=== PATIENT | female | born 1955 | race Hispanic/Latino ===

== ENCOUNTER 2020-07-06 17:05 | Emergency (ER) | payer OTHER ==
[2020-07-06] MEDS ORDERED: DIPHENHYDRAMINE HCL 25 MG CAPSULE ONE (17:40)
== END 2020-07-06 18:15 | disposition home or self-care (01) ==
LOC: EDH 17:05
DX: S40.861A Insect bite (nonvenomous) of right upper arm, initial encounter (principal); I10 Essential (primary) hypertension; W57.XXXA Bitten or stung by nonvenomous insect and other nonvenomous arthropods, initial encounter; Y93.89 Activity, other specified; Y92.89 Other specified places as the place of occurrence of the external cause; Y99.8 Other external cause status
CPT/HCPCS: 99282; Q0163

== ENCOUNTER 2020-07-07 21:55 | Emergency (ER) | payer OTHER ==
[2020-07-07] MEDS ORDERED: PREDNISONE 20 MG TABLET ONE (22:36)
== END 2020-07-07 22:44 | disposition home or self-care (01) ==
LOC: EDH 21:55
DX: L50.0 Allergic urticaria (principal); I10 Essential (primary) hypertension

== ENCOUNTER 2022-04-30 22:19 | Emergency (ER) | payer OTHER ==
[2022-04-30 22:52] LABS: BASOPHILS % (AUTO) 0.3 % (0.0-5.0); EOSINOPHILS % (AUTO) 1.4 % (0.0-8.0); LYMPHOCYTES % (AUTO) 35.9 % (21.0-51.0); MEAN CORPUSCULAR HGB CONC 32.9 g/dL (32.0-36.0); MEAN CORPUSCULAR VOLUME 85.1 fL (79-99); MONOCYTES % (AUTO) 5.3 % (3.0-13.0); NEUTROPHILS % (AUTO) 56.5 % (40.0-77.0); PLATELET COUNT (AUTO) 296 K/uL (130-400); RED BLOOD CELL COUNT(AUTO) 4.82 MIL/uL (4.00-5.50); RED CELL DISTRIBUTION WIDTH 13.3 % (11.0-15.5); WHITE BLOOD COUNT (AUTO) 7.9 K/uL (4.8-10.8)
[2022-04-30 23:11] LABS: ALBUMIN 3.5 g/dL (3.5-5.0); BILIRUBIN,TOTAL 0.3 mg/dL (0.2-1.0); CREATININE 0.8 mg/dL (0.5-1.5); POTASSIUM 3.5 mmol/L (3.5-5.1)
[2022-05-01] MEDS ORDERED: DiphenhydrAMINE HCL 50 MG/ML VIAL ONE (00:05)
[2022-05-01] MEDS ORDERED: DIPH25 PO (01:17)
[2022-05-01 01:29] VITALS: BP 154/72
== END 2022-05-01 01:33 | disposition home or self-care (01) ==
LOC: EDH 22:19
DX: T78.1XXA Other adverse food reactions, not elsewhere classified, initial encounter (principal); L50.9 Urticaria, unspecified; E11.9 Type 2 diabetes mellitus without complications; I10 Essential (primary) hypertension; X58.XXXA Exposure to other specified factors, initial encounter
CPT/HCPCS: 36415; 80053; 84484; 85025; 93005; 99284; J1200

== ENCOUNTER → 2025-03-22 | Emergency (ER) | payer OTHER, MEDICARE ==
[~2025-03-22] VITALS: Ht 154.9 cm; Wt 86.2 kg
[~2025-03-22] MED LIST: CETI10CA5 PO; DIPH-1242 PO; PRED20TA3 PO
[2025-03-22 22:09] LABS: HEMATOCRIT 38.8 % (36-48); MEAN CORPUSCULAR HEMOGLOBIN 28.2 pg (27.0-33.0); MEAN CORPUSCULAR HGB CONC 32.7 g/dL (32.0-36.0); RED BLOOD CELL COUNT(AUTO) 4.51 MIL/uL (4.00-5.50); RED CELL DISTRIBUTION WIDTH 13.5 % (11.0-15.5); WHITE BLOOD COUNT (AUTO) 9.6 K/uL (4.8-10.8)
[2025-03-22] MEDS: FAMOTIDINE 20MG VIAL IV ONE (22:09)
[2025-03-22] MEDS: DiphenhydrAMINE HCL 50 MG/ML VIAL IV ONE (22:09)
[2025-03-22] MEDS: LACTATED RINGERS 1000ML 1,000 ML IV ONE (22:09)
[2025-03-22] MEDS: Solu-medROL 125MG VIAL IVP ONE (22:09)
[2025-03-22] MEDS: ondanSETRON 4MG INJ IVP ONE (22:09)
--- NOTE | 2025-03-22 22:14 | ERN ---
General Chief Complaint: Allergic Reaction Stated Complaint: ALLERGIC REACTION Time Seen by MD: 21:44 History of Present Illness Initial Comments 69-year-old female who presents for allergic reaction. Patient reports just prior to arrival her face got very red, her and, feet and chest are very itchy and she feels tightness to the chest. Appears to be allergic reaction. She has never had this before. She is on sure what triggered it, she ate watermelon prior to arrival. She does report she recently started with the amoxicillin for a throat infection. No dyspnea or respiratory distress. No airway compromise. Allergies: Coded Allergies: No Known Allergies (Unverified Allergy, Unknown, 03/22/25) Home Meds Active Scripts Diphenhydramine HCl (Benadryl) 25 Mg Cap, 25 MG PO TID, #20 CAP Prov:RORY ORTIZ MD 05/01/22 Past Medical History Past Medical History: Diabetes-Type II, High Cholesterol, Hypertension Past Surgical History: Other Surgical History Other: HERNIA Social History Social History: Negative, Lives with family Female( History) History: Not Applicable ROS Dictation CONSTITUTIONAL: Anxious HEAD/FACE: No signs of trauma. EENT: No eye pain, no blurred vision, no tearing, no double vision, no ear pain, no ear discharge, no nose pain, no nasal congestion, no throat pain, no throat swelling, no mouth pain. RESPIRATORY: No cough, no orthopnea, no SOB, no stridor, no wheezing. CARDIOVASCULAR: Chest tightness GASTROINTESTINAL/ABDOMINAL: No abdominal pain, no constipation, no diarrhea, no nausea, no vomiting. GENITOURINARY: No abnormal discharge, no dysuria, no frequent urination, no hematuria. No complaints of pain in the genitals. MUSCULOSKELETAL: No back pain, no gout, no joint pain, no joint swelling, no muscle pain, no muscle stiffness, no neck pain. INTEGUMENTARY: Rash and itchiness NEUROLOGICAL/PSYCH: No anxiety, not depressed, no emotional problem, no headache, no numbness, no pre-existing deficit, no history of seizures, no tremors, no weakness. HEMATOLOGIC/LYMPHATIC: Not anemic, no history of blood clots, no apparent bleeding, no bruising, glands not swollen. All Systems Negative, Except as Noted. Physical Exam Physical Exam Dictation VITAL SIGNS: Reviewed. GENERAL APPEARANCE: Alert, oriented x3, no acute distress, obese. HEAD AND FACE: Non-traumatic. EYES: PERRL, pink conjunctivas, eyelid no trauma, anterior chamber clear. EARS: Pinnas intact and no signs of trauma or erythema. Ear canals clear and no discharge. TMs no erythema. NOSE: No discharge, no bleeding. OROPHARYNX: Mouth normal, teeth no caries, tongue pink. Pharynx clear, no erythema. Tonsils no exudates, no abscesses noted. Mucous membrane moist. NECK: Supple, non-tender, no thyromegaly, no masses, no JVD, no bruits. BREAST: Deferred. CHEST: No tenderness, no crepitus, no paradoxical movement, no retractions. LUNGS: Clear, well-ventilated, symmetric, no rales, no wheezing, no rhonchi, no stridor, good breath sounds bilaterally. HEART: Regular rate, regular rhythm, no murmur, no gallops. VASCULAR: No peripheral edema. ABDOMEN: Soft, positive bowel sounds, nondistended, no guarding, nontender, no rebound, no masses no hepatomegaly, no splenomegaly, no Briggs's sign, no hernias. RECTAL: Deferred. GENITAL: Deferred. NEUROLOGICAL: Normal speech, gross motor function intact, gross sensory function intact. MUSCULOSKELETAL: Neck nontender, full range of motion, back nontender, full range of motion. EXTREMITIES: Nontender, full range of motion. SKIN: Red face, some hives to the chest, redness to the hands LYMPHATICS: Deferred. Results Laboratory and Microbiology Lab and Micro Result Laboratory Tests Test 03/22/25 22:00 White Blood Count 9.6 K/uL (4.8-10.8) Red Blood Count 4.51 MIL/uL (4.00-5.50) Hemoglobin 12.7 g/dL (12.0-16.0) Hematocrit 38.8 % (36-48) Mean Corpuscular Volume 86.0 fL (79-99) Mean Corpuscular Hemoglobin 28.2 pg (27.0-33.0) Mean Corpuscular Hemoglobin Concent 32.7 g/dL (32.0-36.0) Red Cell Distribution Width 13.5 % (11.0-15.5) Platelet Count 330 K/uL (130-400) Mean Platelet Volume 9.4 fL (7.5-10.5) Nucleated Red Blood Cells 0.0 % (0.0-0.19) Sodium Level 137 mmol/L (136-145) Potassium Level 3.6 mmol/L (3.5-5.1) Chloride Level 100 mmol/L (101-111) L Carbon Dioxide Level 28 mmol/L (21-32) Blood Urea Nitrogen 15 mg/dL (7-18) Creatinine 0.9 mg/dL (0.5-1.0) Glomerular Filtration Rate Calc 70 mL/min (>90) Random Glucose 277 mg/dL (70-105) H Total Calcium 9.2 mg/dL (8.5-10.1) MDM CC: Allergic reaction Historian: Patient Comorbidities: Advanced age, diabetes, dyslipidemia, obesity Limitations by social determinants of health: None Differential diagnosis: Allergic reaction, anaphylaxis, airway compromise, other Vital signs show hypertension otherwise stable On clinical exam she does have hives. She does report some tightness in the chest but I do not see any obvious signs of major distress. She is protecting her airway. Her lung sounds are clear. EKG shows sinus rhythm rate of 85 with a normal axis good R-wave progression intervals are stable No labs or imaging indicated Patient received IV fluids, IV Solu-Medrol, IV Benadryl famotidine. She was monitored for 2 hours here in the ER. Her symptoms dramatically improved. On re-evaluation she has a clear lung sounds and no concerning findings. Plan will be to discharge with prednisone and cetirizine. She was also taking amoxicillin for an ENT type infection, we will switch to clindamycin. We will recommend PCP follow up as needed. Patient and family agree with the plan. ED Course Orders Procedure Category Date Status Time Ondansetron 4mg Inj PHA 03/22/25 Complete (Zofran 4mg Inj) 22:00 Methylprednisolone PHA 03/22/25 Complete Succ 125mg (Solu-Medr 22:00 Diphenhydramine Hcl PHA 03/22/25 Complete (Benadryl Inj) 22:00 Famotidine 20mg Vial PHA 03/22/25 Complete (Pepcid 20mg Vial) 22:00 Lactated Ringers PHA 03/22/25 Complete 1000ml (Lactated 22:00 12 Lead Ekg Tracing- EKG 03/22/25 Logged Technical 21:54 Cbc Without LAB 03/22/25 Complete Differential 22:02 Basic Metabolic Panel LAB 03/22/25 Complete 22:02 Current Medications Medications (Trade) Dose Ordered Sig/Max Route PRN Reason Start Time Stop Time Status Last Admin Dose Admin Diphenhydramine HCl (BENAdryl INJ) 25 mg ONCE ONCE IV 03/22/25 22:00 03/22/25 22:01 DC 03/22/25 22:09 Famotidine (Pepcid 20mg Vial) 20 mg ONCE ONCE IV 03/22/25 22:00 03/22/25 22:01 DC 03/22/25 22:09 Lactated Ringer's 1,000 ml @ 0 mls/hr ONCE ONCE IV 03/22/25 22:00 03/22/25 22:01 DC 03/22/25 22:09 Methylprednisolone Sodium Succinate (Solu-medROL 125MG) 125 mg ONCE ONCE IVP 03/22/25 22:00 03/22/25 22:01 DC 03/22/25 22:09 Ondansetron HCl (zoFRAN 4MG INJ) 4 mg ONCE ONCE IVP 03/22/25 22:00 03/22/25 22:01 DC 03/22/25 22:09 Vital Signs Date Time Temp Pulse Resp B/P (MAP) Pulse Ox O2 Delivery O2 Flow Rate FiO2 03/22/25 22:15 98.4 89 22 175/56 98 Room Air* 0 21 03/22/25 21:41 97.3 94 20 187/96 99 Room Air DX & DISP Disposition: Discharge Departure Impression: Primary Impression: Allergic reaction Condition: Stable Scripts Cetirizine HCl (Zyrtec) 10 Mg Capsule 1 CAP PO DAILY for allergy symptoms for 5 Days, #5 CAP 0 Refills Prov: PADILLA EASTMAN DO 03/22/25 Prednisone (Prednisone) 20 Mg Tablet 1 TAB PO BID for 3 Days, #6 TAB 0 Refills Prov: PADILLA EASTMAN DO 03/22/25 Additional Instructions: Your symptoms are most consistent with an allergic reaction. You received IV steroids, famotidine, diphenhydramine here in the ER. Your EKG is normal. I have prescribed prednisone this is an anti-inflammatory steroid. Take this twice per day for the next three days. I have prescribed cetirizine. This is an antihistamine. Take this once per day for the next three days. I recommend that you stop taking the amoxicillin. I have prescribed clindamycin instead. Take as prescribed. Please immediately return to the emergency department if you have any concerning symptoms. Referrals: ZEUS DEL CASTILLO MD (PCP) PADILLA EASTMAN DO March 22, 2025 22:14
[2025-03-22 22:17] LABS: CREATININE 0.9 mg/dL (0.5-1.0); POTASSIUM 3.6 mmol/L (3.5-5.1)
[2025-03-22 23:47] VITALS: BP 156/55; PULSE 85; RESP 22; TEMP 98.4; O2SAT 99
--- NOTE | 2025-03-23 06:30 | EKG ---
[facility] Test Date: 2025-03-22 Test Time: 22:13:14 Pat Name: KAMI GRAFF Department: ED Room: Gender: F Family Consultant: [id number] : 1955 Requested By: PADILLA EASTMAN Order Number: [id number] Reading MD: Wesly Herrmann Measurements Intervals [place] Rate: 85 P: 53 MT: 172 QRS: 0 QRSD: 84 T: 0 QT: 384 QTc: 456 Interpretive Statements Sinus rhythm Indeterminate axis Nonspecific T abnormalities, lateral leads Compared to ECG 04/30/2022 22:18:03 Indeterminate axis now present T-wave abnormality now present Left ventricular hypertrophy no longer present Electronically Signed On 03-26-2025 22:11:03 CDT by Wesly Herrmann Please click the below link to view image of tracing.
== END ==
LOC: EDH 21:39
DX: T78.40XA Allergy, unspecified, initial encounter (principal); E11.9 Type 2 diabetes mellitus without complications; E66.9 Obesity, unspecified; E78.00 Pure hypercholesterolemia, unspecified; I10 Essential (primary) hypertension; X58.XXXA Exposure to other specified factors, initial encounter
CPT/HCPCS: 99284; 96374; 96375; 80048; 85027; 36415; 93005; J2919; J7120; J1200; J3490; J2405